=== PATIENT | male | born 1980 | race Caucasian/White ===

== ENCOUNTER 2017-09-07 19:03 | Emergency (ER) | payer SELFPAY ==
[~2017-09-07] VITALS: Ht 177.8 cm; Wt 70.3 kg
[2017-09-07 19:03] VITALS: BP 149/83
--- NOTE | 2017-09-07 19:15 | ED.ADGEN ---
Adult General Chief Complaint Chief Complaint ".. I got really bad pain in this tooth..(. 9).. if feels like it got pressure.. up into my nose.. I ve had this cap since 10.." HPI HPI Patient is a 37 year old male who presents with above hx and complaints of extreme dental pain in tooth number 9. Pain radiates up into maxillary into bottom of nose. Tooth is tender to percussion. No history immunosuppression. No history of travel. No history of ill contacts. Patient has no trismus. Patient has not follow-up with dentist recently. Review of Systems Review of Systems Constitutional: Denies fever or chills [] Eyes: Denies change in visual acuity, redness, or eye pain [] HENT: Denies nasal congestion or sore throat Complaints of dental pain Respiratory: Denies cough or shortness of breath [] Cardiovascular: No additional information not addressed in HPI [] GI: Denies abdominal pain, nausea, vomiting, bloody stools or diarrhea [] : Denies dysuria or hematuria [] Musculoskeletal: Denies back pain or joint pain [] Integument: Denies rash or skin lesions [] Neurologic: Denies headache, focal weakness or sensory changes [] Endocrine: Denies polyuria or polydipsia [] All other systems were reviewed and found to be within normal limits, except as documented in this note. Family History Family History Noncontributory Current Medications Current Medications Current Medications Medications (Trade) Dose Ordered Sig/[place] Start Time Stop Time Status Last Admin Dose Admin Ceftriaxone Sodium (Rocephin Im) 1 gm 1X ONCE 09/07/17 20:15 09/07/17 21:09 DC 09/07/17 20:59 1 GM Ceftriaxone Sodium (Rocephin) 1 gm STK-MED ONCE 09/07/17 20:41 09/07/17 20:42 DC Lidocaine HCl 20 ml STK-MED ONCE 09/07/17 20:42 09/07/17 20:43 DC Allergies Allergies Allergies Coded Allergies Type Severity Reaction Last Updated Verified No Known Drug Allergies 09/07/17 No Physical Exam Physical Exam Constitutional: in acute distress, non-toxic appearance. [] HENT: Normocephalic, atraumatic, bilateral external ears normal, oropharynx moist, no oral exudates, nose normal. []Dental pain in tooth #9 Eyes: PERRLA, EOMI, conjunctiva normal, no discharge. [] Neck: Normal range of motion, no tenderness, supple, no stridor. [] Cardiovascular:Heart rate regular rhythm, no murmur [] Lungs & Thorax: Bilateral breath sounds clear to auscultation [] Abdomen: Bowel sounds normal, soft, no tenderness, no masses, no pulsatile masses. [] Skin: Warm, dry, no erythema, no rash. [] Back: No tenderness, no CVA tenderness. [] Extremities: No tenderness, no cyanosis, no clubbing, ROM intact, no edema. [] Neurologic: Alert and oriented X 3, normal motor function, normal sensory function, no focal deficits noted. [] Psychologic: Affect anxious, judgement normal, mood normal. [] EKG EKG [] Radiology/Procedures Radiology/Procedures [] Course & Med Decision Making Course & Med Decision Making Pertinent Labs and Imaging studies reviewed. (See chart for details). Tylenol and ibuprofen [id number] for pain. Take Keflex 500 mg 3 times a day. Follow-up with Dentist. Return if any concerns. [] Final Impression Final Impression 1. Dental Pain[]- Tooth 9 Dragon Disclaimer Dragon Disclaimer This electronic medical record was generated, in whole or in part, using a voice recognition dictation system. NESS BAEZ MD September 07, 2017 19:15
[2017-09-07] MEDS ORDERED: CEPH-264 PO (20:13)
[2017-09-07] MEDS ORDERED: cefTRIAXone IM 1 GM VIAL IM ONE (20:15)
[2017-09-07] MEDS ORDERED: cefTRIAXone SODIUM 1 GM VIAL IV ONE (20:41)
[2017-09-07] MEDS ORDERED: LIDOCAINE 1% Multi-Dose 20 ML VIAL. ONE (20:42)
== END 2017-09-07 20:55 | disposition home or self-care (01) ==
LOC: ER 19:03
DX: K08.89 Other specified disorders of teeth and supporting structures (principal)
CPT/HCPCS: 96372; 99283; J0696